=== PATIENT | female | born 1985 | race African-American/Black ===

== ENCOUNTER 2017-06-04 14:51 | Emergency (ER) | payer OTHER ==
[~2017-06-04 14:51] MED LIST: ALBUTEROL17 GM INH; ALPRAZOLAM PO; AMITIZA8 MCG PO; AMOXICILLIN PO; ANUSOL-HC CREAM30 G1 EXT; ATARAX; ATENOLOL; ATENOLOL-CHLORT1 TA2 PO; AUGMENTIN875 MG PO; BENADRYL25 M1 PO; BENTYL10 MG PO; BIRTH CONTROL PILL PO; CLARITIN10 M3 PO; DICYCLOMINE HCL20 MG PO; FIORICET W/CODE1 CAP PO; FLAGYL PO; FLEXERIL10 MG PO; FLONASE 0.05% N16 GM; FLONASE16 GM; IBUPROFEN; IBUPROFEN800 MG PO; MOTRIN400 M1 PO; OMEPRAZOLE20 M1 PO; OMEPRAZOLE40 M1 PO; ORTHO TRI-7 DAYSX 3 PO; PEN-VEE K PO; PHENERGAN PO; PRENATA CHEWAB1 EAC1 PO; PRENATAL VITAMI1 TA3 PO; PRENATAL1 TA1 PO; PRILOSEC20 MG PO; PROZAC; ROBAXIN500 MG; ROBITUSSIN A-C S5 ML PO; SEASONIQUE PO; SINGULAIR PO; SUDAFED30 M1 PO; ULTRAM PO; VICODIN 5/500 T1 TAB PO; VOLTAREN50 MG PO; VOLTAREN75 MG PO; XANAX PO; XANAX0.5 M1 PO; ZOFRAN ODT4 MG PO; ZOFRANODT PO; ZOLOFT; ZYRTEC PO; ZYRTEC10 M2 PO
[2017-06-04] MEDS ORDERED: SINGULAIR (14:59)
[2017-06-04] MEDS ORDERED: PRILOSEC (15:00)
[2017-06-04] MEDS ORDERED: FLONASE 0.05% N16 G1 (15:00)
[2017-06-04] MEDS ORDERED: BCP (15:01)
[2017-06-04] MEDS ORDERED: LINZESS72 MCG (15:02)
[2017-06-04 15:51] LABS: URINE SOURCE CLEAN CATCH
[2017-06-04 15:55] LABS: URINE APPEARANCE CLEAR; URINE BILIRUBIN NEG (NEG); URINE BLOOD NEG (NEG); URINE COLOR YELLOW; URINE GLUCOSE NEG (NORM); URINE KETONE TRACE (NEG); URINE LEUKOCYTE ESTERASE NEG (NEG); URINE NITRATE NEG (NEG); URINE PROTEIN NEG (NEG); URINE SPECIFIC GRAVITY 1.025 (1.003-1.035); URINE UROBILINOGEN 0.2 MG/DL (NORM)
[2017-06-04 15:57] LABS: MICRO INDICATED? NO
[2017-06-04 16:04] LABS: BASOPHIL# 0.1 X10e3 (0-0.3); BASOPHIL% 0.4 % (0-2.5); EOSINOPHIL% 0.3 % (0.0-7.0); HEMATOCRIT 39.3 % (35.0-45.0); HEMOGLOBIN 13.1 gm/dL (12.0-16.0); LYMPHOCYTE# 0.5 X10e3 (1.0-3.5); MEAN CELL VOLUME 84.5 FL (83-96); MEAN CORPUSCULAR HEMOGLOBIN 28.2 PG (28-34); MEAN CORPUSCULAR HGB CONC 33.4 g/dL (30-36); MEAN PLATELET VOLUME 7.6 FL (6.5-11.5); MONOCYTE# 0.3 X10e3 (0-1.0); MONOCYTE% 2.6 % (3.0-12.0); NEUTROPHIL# 11.3 X10e3 (1.5-7.1); NEUTROPHIL% 92.7 % (40-75); PLATELET COUNT 300 X10e3 (140-420); RED BLOOD COUNT 4.65 X10e (3.90-5.30); RED CELL DISTRIBUTION WIDTH 13.7 % (11.0-15.5); WHITE BLOOD COUNT 12.2 X10e3 (4.0-10.5)
[2017-06-04 16:10] LABS: DIFF IND NO
[2017-06-04 16:39] LABS: BILIRUBIN, DIRECT 0.1 mg/dL (0.0-0.2); BILIRUBIN,INDIRECT 0.2 mg/dL (0.0-0.9); BILIRUBIN,TOTAL 0.3 mg/dL (0.2-2.0); BUN/CREATININE RATIO 13.75; CALCIUM SERUM 8.6 mg/dL (8.4-10.2); CREATININE SERUM 0.8 mg/dL (0.6-1.4); GLOM FILT RATE Estimated 113.2 mL/min (>60); PROTEIN TOTAL SERUM 7.5 g/dL (6.0-8.3)
[2017-06-04 16:47] LABS: POTASSIUM 2.8 mmol/L (3.5-5.1)
== END 2017-06-04 17:49 | disposition home or self-care (01) ==
LOC: SED 14:51
PROVIDERS: Emergency Medicine
DX: R10.9 Unspecified abdominal pain (principal); R11.2 Nausea with vomiting, unspecified; R19.7 Diarrhea, unspecified; K21.9 Gastro-esophageal reflux disease without esophagitis; F17.200 Nicotine dependence, unspecified, uncomplicated
CPT/HCPCS: 36415; 80048; 80076; 81003; 82150; 83690; 84703; 85025; 96361; 96372; 96374; 99284; J0500; J2405